=== PATIENT | male | born 1935 | race Caucasian/White ===

== ENCOUNTER 2016-10-28 09:44 | Emergency (ER) | payer MEDICARE, OTHER ==
[~2016-10-28] VITALS: Ht 177.8 cm; Wt 73.8 kg
[2016-10-28 09:46] VITALS: BP 120/84
[2016-10-28 10:23] LABS: HEMATOCRIT 44.9 % (39.2-51.8); HEMOGLOBIN 14.8 g/dL (13.7-18.0); WHITE BLOOD COUNT 7.9 x10^3/uL (3.4-10)
[2016-10-28 10:34] LABS: BLOOD UREA NITROGEN 30 mg/dL (7-18)
[2016-10-28] MEDS ORDERED: CEFAZOLIN 1,000 MG ONE (11:08)
[2016-10-28] MEDS ORDERED: CEFAZOLIN 1,000 MG IM ONE (11:30)
== END 2016-10-28 11:21 | disposition home or self-care (01) ==
LOC: ED 10:10
DX: L03.011 Cellulitis of right finger (principal); M65.9 Synovitis and tenosynovitis, unspecified; E11.9 Type 2 diabetes mellitus without complications
CPT/HCPCS: 36415; 73140; 80048; 84550; 85025; 85651; 86141; 96372; 99285; J0690